=== PATIENT | female | born 1945 ===

== ENCOUNTER 2019-06-26 12:36 | Outpatient (CLI) | payer OTHER | END 2019-06-26 12:37 | disposition home or self-care (01) | LOC: SONOGRAMA 12:36 | DX: R31.29 Other microscopic hematuria (principal) ==

== ENCOUNTER 2023-12-20 14:05 | Outpatient (CLI) | payer OTHER | END 2023-12-20 14:13 | disposition home or self-care (01) | LOC: RAD 14:05 | PROVIDERS: ATTEND Urology | DX: N20.0 Calculus of kidney (principal) ==

== ENCOUNTER 2024-03-12 10:38 | Outpatient (CLI) | payer OTHER | END 2024-03-12 10:46 | disposition home or self-care (01) | LOC: RAD 10:38 | PROVIDERS: ATTEND Urology | DX: N20.0 Calculus of kidney (principal) ==

== ENCOUNTER 2025-05-06 10:33 | Outpatient (CLI) | payer OTHER | END 2025-05-06 10:39 | disposition home or self-care (01) | LOC: SONOGRAMA 10:33 | PROVIDERS: ATTEND Urology | DX: N20.0 Calculus of kidney (principal) ==